=== PATIENT | male | born 1985 | race Caucasian/White ===

== ENCOUNTER → 2017-03-26 | Outpatient (CLI) | payer OTHER ==
[~2017-03-26] MED LIST: LRT5 PO
[2017-03-26 13:18] LABS: CHOLESTEROL/HDL RATIO 7.6
[2017-03-26 13:25] LABS: ESTIMATED AVERAGE GLUCOSE 94 mg/dl; HA1C FLAG Normal (Normal)
== END | disposition home or self-care (01) ==
LOC: C.LABBFT 09:30
PROVIDERS: ATTEND Physician Assistant Medical
DX: E78.1 Pure hyperglyceridemia (principal); R73.01 Impaired fasting glucose

== ENCOUNTER → 2017-07-27 | Outpatient (CLI) | payer OTHER ==
[2017-07-27 17:24] LABS: ALT/SGPT 48 U/L (12-78); AST/SGOT 24 U/L (15-37); CHOLESTEROL 173 mg/dl (0-200); LDL CHOLESTEROL (DIRECT) 83 mg/dl
== END | disposition home or self-care (01) ==
LOC: C.LABBFT 14:45
PROVIDERS: ATTEND Physician Assistant Medical
DX: E78.1 Pure hyperglyceridemia (principal)

== ENCOUNTER → 2017-12-03 | Outpatient (CLI) | payer OTHER ==
[2017-12-03 17:38] LABS: HEMATOCRIT 47.3 % (42-52); HEMOGLOBIN 16.3 g/dL (14.0-18.0); MEAN CORPUSCULAR HEMOGLOBIN 29.6 pg (25-34); MEAN CORPUSCULAR HGB CONC 34.5 g/dl (32-36); MEAN PLATELET VOLUME 9.7 fL (7.4-10.4); PLATELET COUNT 243 K/uL (130-400); RED CELL DISTRIBUTION WIDTH CV 12.3 % (11.5-14.5); RED CELL DISTRIBUTION WIDTH SD 38.8 fL (36.4-46.3); WHITE BLOOD COUNT 6.34 K/uL (4.8-10.8)
[2017-12-03 17:52] LABS: ALBUMIN 4.2 gm/dl (3.4-5.0); ALKALINE PHOSPHATASE 85 U/L (45-117); ALT/SGPT 41 U/L (12-78); AST/SGOT 17 U/L (15-37); BLOOD UREA NITROGEN 13 mg/dl (7-18); CALCIUM 8.8 mg/dl (8.5-10.1); CARBON DIOXIDE 26 mmol/L (21-32); CHOLESTEROL 185 mg/dl (0-200); CREATININE 1.09 mg/dl (0.60-1.40); GLUCOSE 90 mg/dl (70-99); POTASSIUM 4.2 mmol/L (3.5-5.1); SODIUM 136 mmol/L (136-145); TOTAL PROTEIN 7.2 gm/dl (6.4-8.2)
== END | disposition home or self-care (01) ==
LOC: C.LABBFT 14:27
PROVIDERS: ATTEND Physician Assistant Medical
DX: E78.1 Pure hyperglyceridemia (principal); R73.01 Impaired fasting glucose; I10 Essential (primary) hypertension

== ENCOUNTER 2019-02-19 22:05 | Inpatient (IN) ==
[2019-02-19] MEDS ORDERED: SODIUM CHLORIDE 0.9% 1000ML 1,000 ML IV ONE (22:21)
--- NOTE | 2019-02-19 22:26 | Emergency Department Note ---
History of Present Illness General Chief complaint: Abdominal Pain Stated complaint: PAIN ON RT SIDE OF ABD Time Seen by Provider: 02/19/19 22:13 History of Present Illness Maximum Pain Intensity: 5 33-year-old male who presents to emergency department with complaint of progressively worsening right lower quadrant abdominal pain. The patient reports that he woke up around 4 AM this morning to travel back from [place] on a hunting trip. The patient reports that on the last half of his trip, he noticed significant discomfort when hitting a bump. The pain is also worse when he bends over. The pain does not radiate to the left abdomen, chest, flank or back. He rates his discomfort a 5 out of 10, describing it now is a constant pain that was intermittent this morning. The patient reports that he has also been urinating frequently, but has not noticed any blood. He denies history of kidney stones. Home Medications Home Medications Medication Instructions Recorded Confirmed Type atorvastatin 40 mg PO DAILY 04/25/18 02/19/19 History fenofibrate nanocrystallized 145 145 mg PO DAILY #30 tab 12/21/18 02/19/19 Rx mg tablet Allergies Allergy/AdvReac Type Severity Reaction Status Date / Time amoxicillin Allergy Unknown Verified 02/19/19 22:35 Past Med/Surg History Medical History Insomnia (Chronic) Impaired fasting glucose (Chronic) Hypertriglyceridemia (Chronic) Hypertension (Chronic) No significant past medical history Surgical History No significant past surgical history Social History marital status: Single current occupational status: employed Feels Safe at Home: Yes Smoking Status: Never smoker Hx Alcohol Use: Yes Review of Systems 10 system review was performed and was negative except for pertinent positives and negatives as indicated in history of present illness Physical Exam Vital Signs Vital Signs - 24 hr 02/19/19 22:07 02/19/19 23:40 02/20/19 00:46 Temperature 36.6 C Temperature Source Oral Sepsis Recent Fever Within 48 Hours No Sepsis Action Taken by Nursing No Action Required Pulse Rate 111 H Pulse Rate [Finger] 89 80 Respiratory Rate 18 20 20 Respiratory Effort / Characteristics Non-Labored Spontaneous Non-Labored Spontaneous Non-Labored Spontaneous Respiratory Depth Normal Normal Normal Respiratory Pattern Regular Regular Regular Blood Pressure 158/91 H Blood Pressure [Right Arm] 129/81 128/81 Blood Pressure Mean 113 Blood Pressure Mean [Right Arm] 97 96 Blood Pressure Position Sitting Blood Pressure Position [Right Arm] Lying Lying Pulse Oximetry 99 97 100 Oxygen Delivery Method Room Air Room Air Room Air CONSTITUTIONAL: Healthy and well nourished. Alert and oriented X 3. Patient appears in mild discomfort. HEENT: Normocephalic, atraumatic. Pupils equal, round and reactive. No scleral icterus or conjunctival injection. NECK: Full active range of motion without discomfort. RESPIRATORY: Clear to auscultation bilaterally with no wheezing, crackles, rhonchi or stridor. CARDIOVASCULAR: Regular rate and rhythm with no murmurs, rubs or gallops. GASTROINTESTINAL: Bowel sounds present in all quadrants. Patient has a positive McBurney's point tenderness. Negative Rovsing sign. Negative CVA tenderness. Negative psoas/obturator sign. Negative heel tap. No abdominal rigidity, guarding or rebound. MUSCULOSKELETAL: Full range of motion of all joints without discomfort. Negative logroll and negative straight leg raise. INTEGUMENTARY: No rash or other significant dermatologic conditions noted. HEMATOLOGIC: No ecchymosis or petechiae. PSYCHIATRIC: Positive affect. NEUROLOGIC: No focal neurologic deficits noted. Course Patient history and physical exam were performed. Nurse's notes were reviewed. Vital signs were reviewed, showing an elevated blood pressure of 158/91. The patient refused any analgesics or antiemetics. IV access was established, and labs were drawn. The patient was hydrated with a liter normal saline. Review of labs shows a mild leukocytosis with left shift and bandemia. CMP shows an elevated creatinine of 1.52, otherwise remaining electrolytes are unremarkable. Urinalysis shows no evidence for hematuria or signs of infection. CT of the abdomen and pelvis with IV contrast shows evidence for appendicitis without perforation or abscess. The case was further discussed with Dr. Santiago, ED attending physician, who recommended consultation with general surgery. The case was then discussed with Dr. Solis, general surgeon. Please see his dictation for further surgical management and disposition. Administered Medications Ioversol (Optiray 320 100ml) 93 ml IV ONCE PRN PRN Reason: Interaction Checking Stop: 02/23/19 23:04 Last Admin: 02/19/19 23:06 Dose: 93 ml Documented by: [id number] Discontinued Medications Sodium Chloride (Nss 1000ml) 1,000 mls @ 999 mls/hr IV .Q1H1M ONE Stop: 02/19/19 23:21 Last Infusion: 02/19/19 23:32 Dose: 0 mls/hr Documented by: [id number] Admin: 02/19/19 22:31 Dose: 999 mls/hr Documented by: [id number] Medical Decision Making Medical Records Attestation: I reviewed the patient's medical records. Home Medications Current Medication List: was personally reviewed by ca Laboratory Data Attestation: I reviewed the patient's lab results. Result diagrams: 02/19/19 22:27 02/19/19 22:27 Lab Results 02/19/19 02/19/19 02/19/19 Range/Units 22:27 22:27 23:04 WBC 11.26 H (4.8-10.8) K/uL RBC 5.46 (4.7-6.1) M/uL Hgb 17.0 (14.0-18.0) g/dL Hct 46.2 (42-52) % MCV 84.6 (80-100) fL MCH 31.1 (25-34) pg MCHC 36.8 H (32-36) g/dL RDW Std Deviation 37.7 (36.4-46.3) fL RDW Coeff of Mohit 12.4 (11.5-14.5) % Plt Count 276 (130-400) K/uL MPV 8.6 (7.4-10.4) fL Immature Gran % (Auto) 0.4 % Neut % (Auto) 71.8 % Lymph % (Auto) 20.1 % [place] % (Auto) 6.8 % Eos % (Auto) 0.7 % Baso % (Auto) 0.2 % Immature Gran # (Auto) 0.04 H (0.00-0.02) K/uL Neut # (Auto) 8.09 H (1.4-6.5) K/uL Lymph # (Auto) 2.26 (1.2-3.4) K/uL [place] # (Auto) 0.77 H (0.11-0.59) K/uL Eos # (Auto) 0.08 (0-0.5) K/uL Baso # (Auto) 0.02 (0-0.2) K/uL Sodium 136 (136-145) mmol/L Potassium 4.0 (3.5-5.1) mmol/L Chloride 103 (98-107) mmol/L Carbon Dioxide 29 (21-32) mmol/L Anion Gap 5.0 (3-11) BUN 12 (7-18) mg/dl Creatinine 1.52 H (0.6-1.4) mg/dl Est Cr Clr Drug Dosing 80.5 ml/min Est GFR ( Amer) 69.3 Est GFR (Non-Af Amer) 59.8 BUN/Creatinine Ratio 7.9 L (10-20) Glucose 105 H (70-99) mg/dl Calcium 8.9 (8.5-10.1) mg/dl Total Bilirubin 0.7 (0.2-1) mg/dl AST 14 L (15-37) U/L ALT 33 (12-78) U/L Alkaline Phosphatase 59 (45-117) U/L Total Protein 7.7 (6.4-8.2) gm/dl Albumin 4.4 (3.4-5.0) gm/dl Globulin 3.3 (2.5-4.0) gm/dl Albumin/Globulin Ratio 1.3 (0.9-2) Lipase 97 (73-393) U/L Urine Color Yellow Urine Appearance Clear (Clear) Urine pH 6.0 (4.5-7.5) Ur Specific [place] 1.016 (1.000-1.030) Urine Protein Negative (Negative) Urine Glucose (UA) Negative (Negative) Urine Ketones Negative (Negative) Urine Blood Negative (Negative) Urine Nitrite Negative (Negative) Urine Bilirubin Negative (Negative) Urine Urobilinogen Negative (Negative) Ur Leukocyte Esterase Negative (Negative) Imaging Data Attestation: I personally reviewed and interpreted this imaging study as follows: My Impression: My interpretation of a CT scan of the abdomen and pelvis with IV contrast shows evidence for acute appendicitis without perforation or abscess. Radiologist's Impression: Read on stat read report as acute appendicitis without perforation or abscess. Mild sigmoid: Diverticulosis without evidence of acute diverticulitis. Local radiologist report is pending. Blood Pressure Blood Pressure Findings: Normal blood pressure MDM Narrative CT scan shows evidence for acute appendicitis. There is no evidence for diverticulitis, bowel obstruction, free air, abscess or perforation on CT scan. Laboratory studies are not suggestive of acute cystitis/UTI, pancreatitis, cholecystitis or hepatitis. Impression & Plan Acute appendicitis Discharge Plan Visit Data Chief Complaint: Abdominal Pain Stated Complaint: PAIN ON RT SIDE OF ABD ED Provider: Annalise Santiago ED Midlevel Provider: Jd Cao Discharge Problem: Acute appendicitis Patient Disposition: Admitted As Inpatient Forms Stand Alone Forms: Call Back Authorization, [facility] Prescriptions Prescriptions: No Action fenofibrate nanocrystallized 145 mg tablet 145 mg PO DAILY Qty: 30 RF: 5 atorvastatin 40 mg tablet 40 mg PO DAILY RF: 0 Referrals Referrals: Cliff Kc MD [Primary Care Provider] - Discharge Problem: Acute appendicitis Qualifiers: Acute appendicitis type: with localized peritonitis Appendicitis gangrene presence: without gangrene Appendicitis perforation presence: without perforation Appendicitis abscess presence: without abscess Qualified Code(s): K35.30 - Acute appendicitis with localized peritonitis, without perforation or gangrene
[2019-02-19 22:41] LABS: Basophils # (auto) 0.02 K/uL (0-0.2); Basophils % (auto) 0.2 %; Eosinophils # (auto) 0.08 K/uL (0-0.5); Eosinophils % (auto) 0.7 %; Hematocrit (blood only) 46.2 % (42-52); Immature Granulocytes # (auto) 0.04 K/uL (0.00-0.02); Immature Granulocytes % (auto) 0.4 %; Lymphocytes # (auto) 2.26 K/uL (1.2-3.4); Lymphocytes % (auto) 20.1 %; Mean Corpuscular Hemoglobin 31.1 pg (25-34); Mean Corpuscular Hgb Conc 36.8 g/dL (32-36); Mean Corpuscular Volume 84.6 fL (80-100); Mean Platelet Volume 8.6 fL (7.4-10.4); Monocytes # (auto) 0.77 K/uL (0.11-0.59); Monocytes % (auto) 6.8 %; Neutrophils # (auto) 8.09 K/uL (1.4-6.5); Neutrophils % (auto) 71.8 %; Platelet Count 276 K/uL (130-400); RDW Coefficient of Variation 12.4 % (11.5-14.5); RDW Standard Deviation 37.7 fL (36.4-46.3); Red Blood Count 5.46 M/uL (4.7-6.1); White Blood Count 11.26 K/uL (4.8-10.8)
[2019-02-19 22:57] LABS: Albumin Level 4.4 gm/dl (3.4-5.0); BUN Creatinine Ratio 7.9 (10-20); Calcium 8.9 mg/dl (8.5-10.1); Creatinine Clr Calc Pharmacy 80.5 ml/min; Est GFR (African American) 69.3; Est GFR (Non-African American) 59.8
[2019-02-19 23:01] LABS: Albumin Globulin Ratio 1.3 (0.9-2); Bilirubin,Total 0.7 mg/dl (0.2-1); Globulin 3.3 gm/dl (2.5-4.0); Total Protein 7.7 gm/dl (6.4-8.2)
[2019-02-19] MEDS ORDERED: IOVERSOL 100ml IV PRN (23:05)
[2019-02-19 23:11] LABS: Appearance Urine Clear (Clear); Bilirubin Urine Negative (Negative); Blood Urine Negative (Negative); Color Urine Yellow; Glucose Urine UA Negative (Negative); Ketones Urine Negative (Negative); Leukocyte Esterase Urine Negative (Negative); Nitrite Urine Negative (Negative); Protein Urine Negative (Negative); Specific Gravity Urine 1.016 (1.000-1.030); Urobilinogen Urine Negative (Negative)
--- NOTE | 2019-02-20 01:38 | History & Physical Report ---
Date of Service February 20, 2019 Assessment & Plan (1) Acute appendicitis: Patient clinically and radiographically has acute appendicitis he is quite tender in the right lower quadrant and he feels like his pain is getting worse therefore we will proceed with laparoscopic appendectomy possible open risk and complication of the surgery explained to the patient and he would like to proceed accordingly (patient has never had any surgery in the past) religious education coordinator was notified in the hospital OR team will be called in we will administer preop antibiotics (patient states had a possible sensitivity to amoxicillin as a child but he and his mother do not really remember the details of any) Present on Admission?: Yes History of Present Illness This 33-year-old gentleman this morning started experiencing some abdominal discomfort it was initially around the umbilical area then migrated towards right lower quadrant without any nausea but he did have more frequency in urination without dysuria came in to be evaluated in the ER a CT scan pointed to acute appendicitis Primary Care Provider: Santos Kc MD Allergies Allergy/AdvReac Type Severity Reaction Status Date / Time amoxicillin Allergy Unknown Verified 02/19/19 22:35 Home Medications Home Medications Medication Instructions Recorded Confirmed Type atorvastatin 40 mg PO DAILY 04/25/18 02/19/19 History fenofibrate nanocrystallized 145 145 mg PO DAILY #30 tab 12/21/18 02/19/19 Rx mg tablet Past Med/Surg History Medical History Insomnia (Chronic) Impaired fasting glucose (Chronic) Hypertriglyceridemia (Chronic) Hypertension (Chronic) Appendicitis No significant past medical history Surgical History No significant past surgical history Social History marital status: Single current occupational status: employed Feels Safe at Home: Yes Smoking Status: Never smoker Hx Alcohol Use: Yes Physical Exam Constitutional: WD/WN, vitals as above well developed, well nourished and average body habitus Eyes: PERRL, conjunctivae normal, anicteric sclerae ENMT: external ear and nose normal, oropharynx normal Neck: Has a prominent luke stretching over the upper neck no masses Respiratory: normal respiratory effort, lungs clear to auscultation Cardiovascular: RRR, no murmur, no edema Gastrointestinal (Abdomen): No masses exquisite tenderness rebound right lower quadrant Musculoskeletal: no cyanosis or clubbing, extremities motor strength 5/5 Skin: no rashes, warm and dry Results & Data Vital Signs (Past 12 Hours) Vital Signs Temp Pulse Pulse Resp BP BP Pulse Ox 02/20/19 00:46 80 20 128/81 100 02/19/19 23:40 89 20 129/81 97 02/19/19 22:07 36.6 C 111 H 18 158/91 H 99 PG Care Time/CCT Total # of Minutes Spent Total Time Spent with Patient: Total time spent is greater than 50% in coordination of care (as documented) at patient's floor/unit and/or counseling patient: (1) Acute appendicitis Acute appendicitis type: with localized peritonitis Appendicitis abscess presence: without abscess Appendicitis gangrene presence: without gangrene Appendicitis perforation presence: without perforation Qualified Code(s): K35.30 - Acute appendicitis with localized peritonitis, without perforation or gangrene
[2019-02-20] MEDS ORDERED: ONDANSETRON INJ 2 MG/ML 2 ML VIAL ONE (01:59)
[2019-02-20] MEDS ORDERED: DEXAMETHASONE SOD INJ 4 MG/ML VIAL ONE (01:59)
[2019-02-20] MEDS ORDERED: SUCCINYLCHOLINE CHLORIDE 20 MG/ML 10 ML VIAL ONE (01:59)
[2019-02-20] MEDS ORDERED: NEOSTIGMINE METHYLSULFATE 5 MG/5 ML SYR ONE (01:59)
[2019-02-20] MEDS ORDERED: PROPOFOL IV EMULSION 10 MG/ML 20 ML VIAL IV ONE (01:59)
[2019-02-20] MEDS ORDERED: ROCURONIUM BROMIDE 10 MG/ML 5 ML VIAL ONE (01:59)
[2019-02-20] MEDS ORDERED: GLYCOPYRROLATE 0.2 MG/ML VIAL ONE (01:59)
[2019-02-20] MEDS ORDERED: LACTATED RINGER'S 1,000 ML IV SCH ×2 (02:00→03:30)
[2019-02-20] MEDS ORDERED: MIDAZOLAM HCL 1 MG/ML 2ML VIAL ONE (02:00)
[2019-02-20] MEDS ORDERED: fentaNYL citrate 100 MCG/2 ML VIAL ONE ×3 (02:00→03:40)
[2019-02-20] MEDS ORDERED: fentaNYL citrate 100 MCG/2 ML VIAL IV PRN (02:11)
[2019-02-20] MEDS ORDERED: ATROPINE SULFATE 0.1 MG/ML 10ML SYR IV PRN (02:11)
[2019-02-20] MEDS ORDERED: ePHEDrine sulfate 50 MG/ML AMP IV PRN (02:11)
[2019-02-20] MEDS ORDERED: ONDANSETRON INJ 2 MG/ML 2 ML VIAL IV PRN (02:11)
[2019-02-20] MEDS ORDERED: HYDROmorphone INJ 1 MG/ML SYRINGE IV PRN (02:11)
--- NOTE | 2019-02-20 02:11 | Anesthesiology Consultation ---
Date of Service February 20, 2019 Assessment & Plan (1) Encounter for pre-operative examination: Chart Review Chart Review: Acceptable Risk for Surgery and Patient NOT seen in Pre Admission Testing Consults Requested none History Surgery Operation Date: 02/20/19 02:30 Proposed Procedures p Laparoscopic Appendectomy - Devan Solis MD Height/Weight Height: 5 ft 8 in Weight: 101.4 kg Allergies Allergy/AdvReac Type Severity Reaction Status Date / Time amoxicillin Allergy Unknown Verified 02/19/19 22:35 Medications Home Medications Medication Instructions Recorded Confirmed Last Taken atorvastatin 40 mg PO DAILY 04/25/18 02/19/19 Unknown fenofibrate nanocrystallized 145 145 mg PO DAILY #30 tab 12/21/18 02/19/19 Unknown mg tablet Active Medications Generic Name Dose Route Start Last Admin Trade Name Freq PRN Reason Stop Dose Admin Lactated Ringer's 1,000 mls @ 125 mls/hr 02/20/19 02:00 02/20/19 02:06 Lr IV 03/22/19 01:59 125 mls/hr .Q8H LUCAS Administration Ioversol 93 ml 02/19/19 23:05 02/19/19 23:06 Optiray 320 100ml IV 02/23/19 23:04 93 ml ONCE PRN Administration Interaction Checking NPO Date Last Intake of Fluids: 02/20/19 Time Last Intake of Fluids: 19:00 Date Last Intake of Solids: 02/20/19 Time Last Intake of Solids: 13:00 Past Medical History Medical History Insomnia (Chronic) Impaired fasting glucose (Chronic) Hypertriglyceridemia (Chronic) Hypertension (Chronic) Appendicitis No significant past medical history Exercise / Class Metabolic Activity II 4-5 Yardwork/Stairs/Walk up hill Past Surgical History Surgical History No significant past surgical history Past Anesthesia History No Hx of Anesthesia Complications and No Family Hx of Anesthesia Complications History of PONV No Hx of PONV and No Hx of Motion Sickness Social History Smoking Status: Never smoker Hx Alcohol Use: Yes Physical Exam Vital Signs Last Vital Signs Temp 36.6 C 02/19/19 22:07 Pulse 82 02/20/19 01:50 Resp 18 02/20/19 01:50 BP 129/79 02/20/19 01:50 Pulse Ox 97 02/20/19 01:50 Testing Laboratory Results 02/19/19 22:27 02/19/19 22:27 Urine Color Yellow 02/19/19 23:04 Urine Appearance Clear (Clear) 02/19/19 23:04 Urine pH 6.0 (4.5-7.5) 02/19/19 23:04 Ur Specific [place] 1.016 (1.000-1.030) 02/19/19 23:04 Urine Protein Negative (Negative) 02/19/19 23:04 Urine Glucose (UA) Negative (Negative) 02/19/19 23:04 Urine Ketones Negative (Negative) 02/19/19 23:04 Urine Nitrite Negative (Negative) 02/19/19 23:04 Ur Leukocyte Esterase Negative (Negative) 02/19/19 23:04
[2019-02-20] MEDS ORDERED: LIDOCAINE/EPINEPHRINE 1% 20 ML VIAL ONE (02:35)
[2019-02-20] MEDS ORDERED: cefOXitin 2,000 MG in DEXTROSE 5% 50 ML IV SCH (03:15)
--- NOTE | 2019-02-20 03:20 | Post Operative Brief Note ---
PG Immediate Post Op with CF Date of Surgery February 20, 2019 Pre & Post Diagnosis Operation Date: 02/20/19 02:30 Pre-Op Diagnosis: Acute Appendicitis Post-Op Diagnosis: Acute appendicitis I identified the patient and participated in the time-out.: Yes Procedure Operation Date: 02/20/19 02:30 Actual Procedures p Laparoscopic Appendectomy - Devan Solis MD Surgeon Devan Solis MD Crew Director 0 Estimated Blood Loss 5 Findings Consistent with Post-Op Diagnosis Specimens Specimen Description: Permanent specimen: A. Appendix
[2019-02-20] MEDS ORDERED: OXYCODONE/ACETAMINOPHEN 5mg/325mg TAB PO PRN (03:28)
--- NOTE | 2019-02-20 03:41 | Operative Report ---
PG Post Operative Report Pre & Post Diagnosis Operation Date: 02/20/19 02:30 Pre-Op Diagnosis: Acute Appendicitis Post-Op Diagnosis: Acute appendicitis I identified the patient and participated in the time-out.: Yes Procedure Operation Date: 02/20/19 02:30 Actual Procedures p Laparoscopic Appendectomy - Devan Solis MD The patient was brought into the operating theater general endotracheal anesthesia the abdomen shaved and prepped Betadine solution properly draped systemic antibiotics given timeout was had patient was identified made a small incision supraumbilically approximately quarter of an inch Veress needle introduced CO2 insufflated for a 5 mm trocar point of entry inspected no injury identified under direct vision with placement visualization we placed a 5 mm epigastric right upper quadrant port with preemptive local analgesic at this point we were able to identify the cecum who could see a markedly inflamed nonruptured appendix coursing in a corkscrew fashion with down towards the pelvic brim this point I converted the 5 mm umbilical port to an 11 mm by first enlarging the incision using a Amie clamp to open the fascia bed and then placed level millimeter trocar under direct visualization and under direct visualization we placed 5 mm trocar in the left lower quadrant patient was turned in the left lateral position we then placed the camera there we were able to free up the patient had some fine retroperitoneal attachments to the appendix which was adhesion was sharply cotton cauterized and the mesoappendix was freed up with a right angle clamp and then clipped with 10 mm clip studio technician sufficient enough that then we were down to the base of the appendix on the cecum. At this point he used a purple loads to get the appendix off the cecal cap. The appendix was placed in an Endopouch and taken out intact through the umbilical port we then pasted checked hemostasis appear satisfactory there was a small very little oozing along the staple line that we cauterized some cautery at 25 just a few single taps patient was placed in reverse Trendelenburg suctioned out the area then individual trochars removed under direct visualization unless the umbilical trocar fascial stitch 0 Vicryl x2 [id number] used for the umbilical area the abdomen was Monocryl Steri-Strips applied procedure was tolerated well estimated blood loss 5 cc Surgeon Devan Solis MD Furnace Attendant 0 Estimated Blood Loss 5 Findings Consistent with Post-Op Diagnosis Specimens appendix Description of Procedure merda I attest to the content of the Intraoperative Record and any orders documented therein. Any exceptions are noted below.
--- NOTE | 2019-02-20 03:49 | Anesthesiology Progress Note ---
Date of Service February 20, 2019 Anesthesia Post Procedure Vital Signs Vital Signs: Temp Pulse Pulse Pulse Resp BP BP 02/20/19 03:40 74 14 129/84 02/20/19 03:31 36.2 C L 94 H 18 125/98 02/20/19 01:50 82 18 129/79 02/20/19 00:46 80 20 128/81 02/19/19 23:40 89 20 129/81 02/19/19 22:07 36.6 C 111 H 18 158/91 H Pulse Ox 02/20/19 03:40 100 02/20/19 03:31 99 02/20/19 01:50 97 02/20/19 00:46 100 02/19/19 23:40 97 02/19/19 22:07 99 Pain Intensity Abdomen: Pain Intensity: 3 Transfer of Care Handoff Completed per policy Notes Mental Status: alert / awake / arousable and participated in evaluation Patient Amnestic to Procedure: Yes Nausea / Vomiting: adequately controlled Pain: adequately controlled Airway Patency, RR, SpO2: stable & adequate BP & HR: stable & adequate Hydration State: stable & adequate Anesthetic Complications: no major complications apparent and Pt Satisfied with anesthetic care
--- NOTE | 2019-02-20 05:20 | CT Scan Report ---
CT abd pelvis IV con only CLINICAL HISTORY: 33 years-old Male presenting with RLQ abd pain. TECHNIQUE: Multidetector CT of the abdomen and pelvis was performed after the administration of intra venous contrast. IV contrast: 93 mL of Optiray 320. One or more dose lowering techniques were used co nsistent with the principles of ALARA (as low as reasonably achievable), including automatic exposure control, mA or kV adjustment to individual patient size, and/or use of iterative reconstruction. COMPARISON: None. CT DOSE (mGy.cm): The estimated cumulative dose is 830.91 mGy.cm. FINDINGS: Hamper Maker topogram: Unremarkable. Lung bases: Normal heart size. No pericardial or pleural effusion. No focal infiltrate or nodule at t he lung bases. Liver: Normal morphology. No liver lesion. Patent hepatic vasculature. Biliary: No intrahepatic or extrahepatic biliary ductal dilatation. Normal gallbladder. Pancreas: Mild parenchymal atrophy. Spleen: Normal. Adrenal glands: Normal. Kidneys and ureters: Normal. No hydronephrosis. Bladder: Incompletely evaluated secondary to underdistention. Pelvic organs: Normal. Bowel: Limited diverticulosis of the proximal sigmoid and distal descending colon without wall thicke yamile or pericolonic inflammatory change. The appendix is dilated and has periappendiceal fat infiltra tion and adjacent peritoneal thickening. The appendix measures 12 mm in diameter. No adjacent fluid c ollection or evidence of mucosal discontinuity. No bowel obstruction. Peritoneal cavity: No free fluid or intraperitoneal gas. Lymph nodes: No enlarged lymph nodes in the abdomen or pelvis. Vasculature: Aorta and IVC patent and normal in caliber. Abdominal wall: Normal. Musculoskeletal: Normal. IMPRESSION: 1. Acute uncomplicated appendicitis. No abscess or evidence of perforation. Surgical consultation is necessary. 2. Mild diverticulosis. No evidence of diverticulitis. These findings were discussed with Dr. Cao by Dr. Guido on 02/20/2019 0:55 AM. Electronically signed by: Efren Sánchez M.D. 02/20/2019 5:17 AM
[2019-02-20] MEDS ORDERED: INFLUENZA ADMINISTRATION CHARGE ONE (06:15)
[2019-02-20] MEDS ORDERED: INFLUENZA VIRUS QUAD VACCINE 0.5 ML SYR IM ONE (06:15)
[2019-02-20 06:44] VITALS: TEMP 98.1
[2019-02-20 07:28] VITALS: BP 113/67; PULSE 67; O2SAT 93
--- NOTE | 2019-02-20 08:50 | Surgery Progress Note ---
Date of Service February 20, 2019 Assessment & Plan (1) Acute appendicitis: increase diet, activity home today sen with Dr. Solis F/U with PCP for elevated Cr, has been seen for this in the past Subjective no nausea, minimal pain Physical Exam Gastrointestinal (Abdomen): Inspection/Auscultation: + abdominal surgical incision (dressing on umbilical, minimal drainage); abdomen not distended Percussion/Palpation: abdomen soft Results & Data Vital Signs (Past 12 Hours) Vital Signs Temp Pulse Pulse Pulse Pulse Resp BP 02/20/19 07:00 36.7 C 67 16 02/20/19 06:15 36.7 C 85 16 02/20/19 05:15 37.1 C 78 16 02/20/19 04:45 36.8 C 68 16 02/20/19 04:15 36.9 C 69 16 02/20/19 04:10 68 14 02/20/19 04:00 36.7 C 77 16 02/20/19 03:50 70 16 02/20/19 03:40 74 14 02/20/19 03:31 36.2 C L 94 H 18 02/20/19 01:50 82 18 02/20/19 00:46 80 20 02/19/19 23:40 89 20 02/19/19 22:07 36.6 C 111 H 18 158/91 H BP BP Pulse Ox 02/20/19 07:00 113/67 93 02/20/19 06:15 123/81 98 02/20/19 05:15 117/70 99 02/20/19 04:45 115/73 98 02/20/19 04:15 122/79 98 02/20/19 04:10 121/69 94 02/20/19 04:00 126/61 97 02/20/19 03:50 124/71 95 02/20/19 03:40 129/84 100 02/20/19 03:31 125/98 99 02/20/19 01:50 129/79 97 02/20/19 00:46 128/81 100 02/19/19 23:40 129/81 97 02/19/19 22:07 99 PG Care Time/CCT Total # of Minutes Spent Total Time Spent with Patient: Total time spent is greater than 50% in coordination of care (as documented) at patient's floor/unit and/or counseling patient: (1) Acute appendicitis Acute appendicitis type: with localized peritonitis Appendicitis abscess presence: without abscess Appendicitis gangrene presence: without gangrene Appendicitis perforation presence: without perforation Qualified Code(s): K35.30 - Acute appendicitis with localized peritonitis, without perforation or gangrene
--- NOTE | 2019-02-21 15:23 | Discharge Summary ---
Date of Service February 21, 2019 Principal Diagnosis Acute appendicitis Discharge Exam Gastrointestinal (Abdomen) Inspection/Auscultation: + abdominal surgical incision (minimal drainage from umbilical incision); abdomen not distended Percussion/Palpation: abdomen soft Discharge Data Allergies Allergy/AdvReac Type Severity Reaction Status Date / Time amoxicillin Allergy Unknown Verified 02/19/19 22:35 Consultations 02/20/19 00:49 ED Decision to Admit Stat Procedures Performed Operation Date: 02/20/19 02:30 Actual Procedures p Laparoscopic Appendectomy - Devan Solis MD Ordered Studies 02/19/19 22:21 CT abd pelvis IV con only Urgent Hospital Course (1) Acute appendicitis: 33 y/o male with abdominal pain localizing to RLQ with WBC 11,[address] consistent with appendicitis. He was taken to the OR for laparoscopic appendectomy and observed on the surgical floor overnight. In the morning he was able to advance diet. He was stable for discharge. Total Time Total Time Spent Total Time Spent (In Minutes): 10 Discharge Plan Discharge Items Patient Disposition: Home - Self-Care Reason For Visit: POST OP LAP APPY Discharge Diagnosis: appendicitis Activity: As commented below Lifting: No more than 10 pounds Bathing: No limitations Bathing Comment: remove bandages tomorrow, leave steri-strips on Driving/Machine Use: Resume 3 days after discharge Non-emergency contact: Surgeon Call non-emergency contact if: you have any medication questions, your pain is not controlled, you have a fever, your temperature is above 101.5, your wound has increased redness and your wound has increased drainage Follow-up/Referrals: Cliff Kc MD [Primary Care Provider] - (Follow-up within a few weeks for elevated creatinine, was 1.5 ) Devan Solis MD [Surgeon] - (Call to make an appt in 1 week) Diet: Regular Addtl Attending Provider Instructions: Pending Studies at Discharge: No Stand-Alone Forms: Call Back Authorization, [employer], Opioid Pain Management, Work/School Release (Inpt), Smoking Cessation Medications and DC Order Prescriptions: New oxycodone-acetaminophen [Percocet] 5-325 mg tablet 1 - 2 tab PO Q4H PRN (Reason: pain, initial therapy, max 8 daily) Qty: 15 RF: 0 Continued fenofibrate nanocrystallized 145 mg tablet 145 mg PO DAILY Qty: 30 RF: 5 atorvastatin 40 mg tablet 40 mg PO DAILY RF: 0 Discharge Orders: Discharge Order (Routine); Ordered 02/20/19 Ordered By: Antonio Charles/Other Patient Handouts: Surgery Prevent DVT After Admission Data Admit Date/Time: 02/20/19 03:30 Attending Provider: Devan Solis Admit Provider: Devan Solis Primary Care Provider: Cliff Kc Other Providers: Devan Solis Other Interventions: Discharge Summary Assessment (RN) Last Done: 02/20/19 09:04 DC Date/Time DO NOT enter until pt leaves facility: 02/20/19 09:45
== END 2019-02-20 09:45 | disposition home or self-care (01) | DRG 343 ==
LOC: ED 22:05 → OR 02-20 02:05 → 3E 02-20 03:30